=== PATIENT | female | born 1955 | race Caucasian/White ===

== ENCOUNTER → 2018-01-23 | Outpatient (CLI) | payer OTHER ==
[~2018-01-23] MED LIST: ATOR20TA22 PO; ATR10 PO; CETI10CA8 PO; DIAZ-308 PO; DICL-195 PO; DULERAPT IH; ERGO500037 PO; EST3 PO; EST625 PO; LOR5/325 PO; MELO-150 PO; MET500 PO; METF-411 PO; MONT10TA PO; MONT10TA4 PO; NORT50CA PO; PSEU-75 PO; RIZA5TAB2 PO; RIZA5TAB30 PO; ZOLM2.5 PO; [UNRECOGNIZED DRUG - OTHER]
--- NOTE | 2018-01-23 14:15 | RADIOLOGY IMAGING REPORT ---
FACILITY: [facility] [place] PATIENT NAME: FELICITAS PEGUERO : [id number] MR: [id number] V: [id number] EXAM DATE: ORDERING PHYSICIAN: RAMA PAT TECHNOLOGIST: Sita Hernandez PROCEDURE:BILATERAL DIGITAL SCREENING MAMMOGRAM WITH CAD ASSISTED INTERPRETATION & 3D TOMOSYNTHESIS COMPARISON:Prior mammograms 06/18/15, 06/12/14, 04/02/14, 05/08/13. INDICATIONS:SCREENING FINDINGS: Moderately heterogeneous fibroglandular tissue is seen throughout the breasts. The parenchymal pattern has remained stable allowing for difference in mammographic technique & patient positioning. There are scattered round calcifications seen bilaterally that have remained stable. There is no demonstration of malignant appearing mass, malignant appearing calcifications or other secondary sign of malignancy in either breast. DIAGNOSTIC CATEGORY 2--BENIGN FINDING. RECOMMENDATIONS: ROUTINE MAMMOGRAM AND CLINICAL EVALUATION. IMPRESSION: BIRADS 2: Benign finding. No significant abnormality is seen. Dictated by: Carolyn Adorno M.D. on 01/23/2018 at 11:37 Transcribed by: MIKEY on 01/23/2018 at 11:46 Approved by: Carolyn Adorno M.D. on 01/23/2018 at 14:13 [facility]
== END ==
LOC: MAMO 01:38
PROVIDERS: ATTEND Obstetrics & Gynecology
DX: Z12.31 Encounter for screening mammogram for malignant neoplasm of breast (principal); R92.1 Mammographic calcification found on diagnostic imaging of breast
CPT/HCPCS: 77063; 77067

== ENCOUNTER → 2018-03-26 | Outpatient (CLI) | payer OTHER ==
[~2018-03-26] MED LIST changes: +CHOL200018 PO; +FLU60VIA41 IM; +MAGN400C PO; -METF-411 PO; +METF-450 PO
--- NOTE | 2018-03-26 11:14 | RADIOLOGY IMAGING REPORT ---
FACILITY: [facility] PATIENT NAME: Vira Lozoya : 1955 MR: [id number] V: [id number] EXAM DATE: ORDERING PHYSICIAN: TWYLA LANCE TECHNOLOGIST: Location: [facility] Patient: Vira Lozoya : 1955 Visit/Account:[id number] Date of Sevice: 03/26/2018 THYROID HISTORY: Patient reportedly had a biopsy of the dominant nodule in the right lobe 3-4 years ago. I do not see evidence of a ultrasound-guided thyroid biopsy at this institution. ADDITIONAL HISTORY: None. COMPARISON: 09/24/2011 thyroid ultrasound FINDINGS: Thyroid size: Right lobe is enlarged due to a dominant nodule. Right lobe: 5.8 craniocaudad by 2.6 x 2 point cm Left lobe: 5.4 craniocaudad by 1.6 x 1.5 cm Thyroid nodules Right lobe: There is a dominant solid with small cystic components nodule seen in the right lob e which is enlarged over time. It is hypervascular. In 2012 it measured 2.9 x 2.1 x 1.2 and now pierre sures 4.0 x 2.9 x 1.9 cm. There is a solid oval smooth margined slightly hypoechoic nodule previously measuring 0.9 x 0.8 x 0.5 cm now measures 1.2 x 0.9 x 0.5 cm. Left lobe: 5 mm hypoechoic nodule unchanged. Isthmus: None discrete. Thyroid vascularity: Within normal limits. Thyroid echotexture: Homogenous and normal. IMPRESSION: A large solid/cystic nodule in the right thyroid lobe is increased in size since 2011 and is hypervas cular. Given the increase in size recommend ultrasound guided FNA for definitive diagnosis. Report Dictated By: Matthew Parmar MD at 03/26/2018 10:57 AM Report E-Signed By: Matthew Parmar MD at 03/26/2018 11:09 AM WSN:[email or web address]
== END ==
LOC: US 03:15
PROVIDERS: ATTEND Internal Medicine
DX: E04.2 Nontoxic multinodular goiter (principal)
CPT/HCPCS: 76536